=== PATIENT | male | born 1990 | race Two or more races ===

== ENCOUNTER 2022-03-14 17:53 | Emergency (ER) | payer OTHER ==
[~2022-03-14] VITALS: Ht 177.8 cm; Wt 113.4 kg
[~2022-03-14 17:53] MED LIST: AMOX1TAB12 PO; DOLOGEN CAPLET1 EACH PO; INTESTINEX1 CAP PO; KETO10TA2 PO; MEDROL4 MG PO; MOTRIN800 MG PO; ORPHENADRINE C100 MG PO
== END 2022-03-14 22:26 | disposition home or self-care (01) ==
LOC: ER 17:53
DX: R10.31 Right lower quadrant pain (principal)

== ENCOUNTER 2022-03-19 12:17 | Inpatient (IN) | payer OTHER ==
[~2022-03-19] VITALS: Ht 172.7 cm; Wt 95.3 kg
[2022-03-19] MEDS ORDERED: LOSARTAN POTASS50 MG PO (12:33)
[2022-03-21] MEDS ORDERED: AMLODIPINE BESY10 MG (09:15)
[2022-03-21] MEDS ORDERED: FAMOTIDINE20 MG (09:15)
== END 2022-03-21 09:43 | disposition left against medical advice (07) | DRG 948 ==
LOC: ER 12:17 → MEDJ 21:31
PROVIDERS: ADMIT Internal Medicine; ATTEND Internal Medicine
PROC: BW2110Z Computerized Tomography (CT Scan) of Abdomen and Pelvis using Low Osmolar Contrast, Unenhanced and Enhanced (ICD-10-PCS; principal; 2022-03-19)
DX: G89.18 Other acute postprocedural pain (principal); R10.31 Right lower quadrant pain; I10 Essential (primary) hypertension; Z98.890 Other specified postprocedural states

== ENCOUNTER 2022-10-06 13:19 | Emergency (ER) | payer OTHER ==
[~2022-10-06] VITALS: Ht 177.8 cm; Wt 113.4 kg
[~2022-10-06 13:19] MED LIST changes: +AMLODIPINE BESY10 MG; +FAMOTIDINE20 MG; +LOSARTAN POTASS50 MG PO
== END 2022-10-06 17:38 | disposition home or self-care (01) ==
LOC: ER 13:19
DX: M25.571 Pain in right ankle and joints of right foot (principal); I10 Essential (primary) hypertension

== ENCOUNTER 2023-11-03 16:08 | Emergency (ER) | payer OTHER ==
[~2023-11-03] VITALS: Ht 177.8 cm; Wt 99.8 kg
== END 2023-11-03 17:26 | disposition home or self-care (01) ==
LOC: ER 16:09
DX: L30.9 Dermatitis, unspecified (principal)

== ENCOUNTER 2024-04-08 22:12 | Emergency (ER) | payer OTHER ==
[~2024-04-08] VITALS: Ht 177.8 cm; Wt 117.9 kg
[2024-04-08] MEDS ORDERED: KETOROLAC TROMETHAMINE 60 MG VIAL IM ONE (23:33)
== END 2024-04-09 01:16 | disposition home or self-care (01) ==
LOC: ER 22:14
DX: H92.01 Otalgia, right ear (principal); J06.9 Acute upper respiratory infection, unspecified; Z20.822 Contact with and (suspected) exposure to COVID-19